=== PATIENT | male | born 1955 | race Hispanic/Latino ===

== ENCOUNTER → 2024-05-21 | Outpatient (CLI) | payer MEDICARE | END | disposition home or self-care (01) | LOC: SHCH 12:31 | PROVIDERS: ATTEND Internal Medicine Cardiovascular Disease | DX: I70.203 Unspecified atherosclerosis of native arteries of extremities, bilateral legs (principal); M79.604 Pain in right leg; M79.605 Pain in left leg | CPT/HCPCS: 93970 ==

== ENCOUNTER → 2024-05-25 | Outpatient (CLI) | payer OTHER | END | disposition home or self-care (01) | LOC: RAH 12:26 | PROVIDERS: ATTEND Internal Medicine Cardiovascular Disease | DX: Z13.6 Encounter for screening for cardiovascular disorders (principal); I10 Essential (primary) hypertension | CPT/HCPCS: 75571 ==

== ENCOUNTER → 2024-08-06 | Outpatient (CLI) | payer MEDICARE ==
[2024-08-06] MEDS: REGADENOSON 0.4 MG/5 ML PF SYG IVP ONE (15:09)
== END | disposition home or self-care (01) ==
LOC: SHCH 07:54
PROVIDERS: ATTEND Internal Medicine Cardiovascular Disease
DX: I10 Essential (primary) hypertension (principal); R06.09 Other forms of dyspnea; R07.9 Chest pain, unspecified
CPT/HCPCS: 78452; 93017; J2785; A9500 ×2

== ENCOUNTER → 2025-06-29 | Outpatient (CLI) | payer MEDICARE ==
--- NOTE | 2025-06-30 11:43 | HMCIMG ---
EXAM: CT Chest Without IV contrast. CLINICAL HISTORY: Abnormal findings on diagnostic imaging of other specified body structures TECHNIQUE: Axial computed tomography images of the chest without intravenous contrast. COMPARISON: None provided. FINDINGS: LUNGS: No pulmonary nodules. No pulmonary infiltrates. Right basilar atelectasis. PLEURAL SPACES: No evidence of pneumothorax. No pleural effusion. HEART: No cardiomegaly. No significant pericardial effusion. Atherosclerotic calcification of the coronary vessels LYMPH NODES: No lymphadenopathy is evident. UPPER ABDOMEN: The upper abdominal solid organs are unremarkable. The visualized abdomen shows a surgically absent gallbladder. Bilateral mild perinephric fat stranding is present along with a few prominent anterior abdominal wall veins. BONES: No acute osseous abnormality. Pedicle screw fixation involving the T11 and T12 vertebrae is partly visualized and appears intact. Small multilevel anterior vertebral osteophytes are present. IMPRESSION: No pulmonary infiltrates or pleural effusions. Right basilar atelectasis. Coronary artery disease. /[place]
== END | disposition home or self-care (01) ==
LOC: RAH 13:21
PROVIDERS: ATTEND Family Medicine
DX: J98.11 Atelectasis (principal); R93.89 Abnormal findings on diagnostic imaging of other specified body structures; I25.10 Atherosclerotic heart disease of native coronary artery without angina pectoris; M25.78 Osteophyte, vertebrae; Z90.49 Acquired absence of other specified parts of digestive tract
CPT/HCPCS: 71250

== ENCOUNTER → 2025-07-20 | Outpatient (CLI) | payer MEDICARE ==
--- NOTE | 2025-07-20 21:13 | HMCIMG ---
EXAMINATION: CT Scan of the Abdomen without contrast CLINICAL HISTORY: Acquired renal cysts TECHNIQUE: Axial CT images of the abdomen were obtained without intravenous contrast. Reformatted images were reviewed. RADIATION DOSE: CTDIvol = 24 mGy DLP = 904.6 mGycm COMPARISON: Prior abdominal sonography dated July 12, 2025, demonstrating multiple bilateral renal cysts, largest in the right renal lower pole. FINDINGS: Liver: The liver measures 16 cm in craniocaudal dimension and demonstrates normal parenchymal attenuation without focal lesions. Gallbladder: Surgically absent. Biliary System: Intrahepatic biliary ducts are unremarkable. Pancreas: Normal in size and attenuation. Spleen: Unremarkable. Adrenal Glands: Bilateral adrenals are unremarkable. Kidneys: There are multiple bilateral renal cysts, both endophytic and exophytic. The largest cyst is located in the inferior pole anteriorly, measuring 2.6 cm with an average attenuation value of 8 Hounsfield units, compatible with simple cysts. Findings are stable compared with prior sonography. Bowel: Fecal matterloaded colon is present. No wall thickening or obstruction is noted. Vessels: Multiple prominent collateral vessels are present in the anterior abdominal wall. Infrarenal inferior vena cava filter is visualized. Lungs/Bases: Bibasilar streaky and dependent atelectasis is noted. Bones and Spine: Chronic compression fracture of L1 vertebra with post-vertebroplasty status is present. Chronic burst fracture of L4 vertebra is noted with a retropulsed fragment causing spinal canal narrowing. Diffuse osteopenia is present. Bilateral laminectomy defects are seen at T12 through L4 levels. Transpedicular fixation screws and plates are visualized bilaterally, extending from T11 inferiorly into the lumbar spine (lower extent not fully visualized). IMPRESSION: * Multiple bilateral renal cysts, largest measuring 2.6 cm in the right inferior pole, consistent with simple cysts. * Chronic compression fracture of L1 vertebra with post-vertebroplasty. Chronic burst fracture of L4 vertebra with retropulsed fragment causing spinal canal narrowing. * Diffuse osteopenia and post-surgical changes including bilateral laminectomies from T12L4 with transpedicular fixation hardware. * Persistent infrarenal IVC filter. * Surgically absent gallbladder. * In comparison with the prior sonography of the abdomen dated July 12, 2025, the bilateral renal cysts are stable. /[place]
== END | disposition home or self-care (01) ==
LOC: RAH 13:32
PROVIDERS: ATTEND Family Medicine
DX: S32.041A Stable burst fracture of fourth lumbar vertebra, initial encounter for closed fracture (principal); N28.1 Cyst of kidney, acquired; M85.88 Other specified disorders of bone density and structure, other site; J98.11 Atelectasis; X58.XXXA Exposure to other specified factors, initial encounter; Y93.89 Activity, other specified; Y92.89 Other specified places as the place of occurrence of the external cause; Y99.8 Other external cause status; Z90.49 Acquired absence of other specified parts of digestive tract
CPT/HCPCS: 74150